=== PATIENT | female | born 1980 | race Two or more races ===

== ENCOUNTER 2018-10-15 21:17 | Emergency (ER) | payer OTHER ==
[~2018-10-15] VITALS: Ht 170.2 cm; Wt 59.9 kg
[~2018-10-15 21:17] MED LIST: CALC-494 PO; FERR325T6 PO; PREN-125 PO
--- NOTE | 2018-10-15 21:30 | NUR ---
Pt. ambulated into ED w/ c/o R eyebrow superficial small laceration from colliding w/ car door, denies WHARTON/N/V, A/Ox4, RR even/unlabored,
[2018-10-15] MEDS ORDERED: SODIUM BICARBONATE 4.2 % (NEUT) 5 ML VIAL TP ONE (21:45)
[2018-10-15] MEDS ORDERED: TDAP DIPH,PERTUSS,TET VAC/PF 0.5 ML DISP.SYRIN IM ONE ×3 (21:45→22:06)
[2018-10-15] MEDS ORDERED: LIDOCAINE 1%-EPI 1:100,000 20 ML VIAL TP ONE (21:45)
[2018-10-15] MEDS ORDERED: CEphaleXIN 500 MG CAPSULE PO ONE (21:45)
[2018-10-15] MEDS ORDERED: LET TOPICAL SOLUTION 8 ML UDC TOP ONE (21:45)
[2018-10-15] MEDS ORDERED: CEphaleXIN 500 MG CAPSULE ONE (21:56)
--- NOTE | 2018-10-15 22:10 | NUR ---
Patient discharged to home in stable conditon. Written and verbal after care instructions given. Patient verbalizes understanding of instructions. Pt. d/c w/ perscription per MD order, d/c papers signed, all belongings w/ pt., ID band removed, ambulated off unit w/ steady gait, NAD
== END 2018-10-15 22:16 | disposition home or self-care (01) ==
LOC: ER 21:19
DX: S01.111A Laceration without foreign body of right eyelid and periocular area, initial encounter (principal); Z91.018 Allergy to other foods; Z79.899 Other long term (current) drug therapy; W22.8XXA Striking against or struck by other objects, initial encounter; Y93.89 Activity, other specified; Y92.89 Other specified places as the place of occurrence of the external cause; Y99.8 Other external cause status
CPT/HCPCS: 90715; A4663; J3490

== ENCOUNTER 2020-01-14 12:07 | Emergency (ER) | payer OTHER, MEDICAID ==
[~2020-01-14] VITALS: Ht 170.2 cm; Wt 63.5 kg
--- NOTE | 2020-01-14 12:25 | NUR ---
PT IS IN ROOM #2A. DR MOORE EVALUATED THE PT.
[2020-01-14] MEDS ORDERED: LORAZEPAM 0.5 MG TABLET PO ONE (12:30)
[2020-01-14] MEDS ORDERED: LORAZEPAM 1 MG TABLET ONE (12:35)
--- NOTE | 2020-01-14 12:37 | NUR ---
PT WAS D/C'd TO HOME. D/C INSTRUCTIONS GIVEN TO THE PT.
[2020-01-14 12:38] VITALS: BP 128/77
== END 2020-01-14 12:39 | disposition home or self-care (01) ==
LOC: ER 12:17
DX: F41.1 Generalized anxiety disorder (principal); R29.0 Tetany
CPT/HCPCS: A4663